=== PATIENT | female | born 1955 | race Caucasian/White ===

== ENCOUNTER 2018-10-02 06:34 | Inpatient (IN) | payer SELFPAY ==
[2018-10-02] MEDS ORDERED: METHYLPREDNISOLONE 125 MG INJ ONE (06:55)
[2018-10-02] MEDS ORDERED: LEVALBUTEROL 1.25 MG/3 ML NEB ONE (06:56)
[2018-10-02] MEDS ORDERED: MAGNESIUM SULFATE 1 gm IVPB 1 GM/100 ML BAG IV ONE (06:56)
[2018-10-02 07:19] LABS: Arterial Blood Carboxyhemoglob 0.7 % (0-1.5); Blood Gas Oxyhemoglobin 77.5 % (94-97); Blood O2 Saturation 78.6 % (92-98.5)
[2018-10-02] MEDS ORDERED: IPRATROPIUM BROM 0.5MG/2.5ML ONE (07:29)
[2018-10-02] MEDS ORDERED: ALBUTEROL 2.5 MG/3 ML NEB SOL ONE (07:29)
[2018-10-02 08:08] LABS: Troponin (Emerg Dept Use Only) 0.07 ng/mL (0.0-0.045)
--- NOTE | 2018-10-02 08:11 | RAD REPORT ---
EXAM DESCRIPTION: Jennifer Single View10/02/2018 7:09 am CLINICAL HISTORY: Shortness of breath COMPARISON: 2009 FINDINGS: The lungs are hyperaerated. The lungs appear clear of acute infiltrate. The heart is normal size
[2018-10-02 08:24] LABS: Absolute Lymphocytes (CBC) 1.4 K/uL (0.7-4.9); Absolute Monocytes 0.3 K/uL (0.1-1.3); Absolute Neutrophil 6.5 K/uL (1.8-8.0); Basophils % 0.5 % (0-1.3); Eosinophils % 3.2 % (0-4.4); Hematocrit 42.8 % (36.0-45.0); Lymphocytes % 16.2 % (15.3-44.8); MPV 8.9 fL (7.6-11.3); Monocytes % 3.6 % (3.3-12.3); RBC Red Blood Cell Count 4.44 M/uL (3.86-4.86)
[2018-10-02] MEDS ORDERED: LORazepam 2 MG/ML VIAL ONE (08:42)
--- NOTE | 2018-10-02 08:51 | ER ---
Nurse's Notes [facility] Name: Alyson Phillips Age: 63 yrs Sex: Female : 1955 Arrival Date: 10/02/2018 Time: 06:37 Bed 4 Private MD: Diagnosis: Chronic obstructive pulmonary disease with (acute) exacerbation;Elevated Troponin Presentation: 10/02 06:40 Presenting complaint: pt's daughter states pt is having difficulty breathing which has bb worsened over the last few hours. Transition of care: patient was not received from another setting of care. Onset of symptoms was October 02, 2018. Risk Assessment: Do you want to hurt yourself or someone else? Patient reports no desire to harm self or others. Initial Sepsis Screen: Does the patient meet any 2 criteria? RR > 20 per min. HR > 90 bpm. Yes Does the patient have a suspected source of infection? Yes: Productive cough/pneumonia If YES to both, name of provider notified: Vitaly Luz MD. Care prior to arrival: None. 06:40 Method Of Arrival: Ambulatory bb 06:40 Acuity: GREGORIO 1 bb Triage Assessment: 06:50 General: Appears distressed, Behavior is anxious, restless. Respiratory: Reports lp1 shortness of breath Airway is patent Respiratory effort is labored, Respiratory pattern is tachypnea Breath sounds with wheezes bilaterally. Onset: The symptoms/episode began/occurred just prior to arrival, the patient has severe shortness of breath. Historical: - Allergies: 06:52 poison oak; bb - Home Meds: 06:52 albuterol inhaler [Active]; bb - PMHx: 06:52 None; bb - PSHx: 06:52 Hysterectomy; throat polyps; bb - Immunization history:: Adult Immunizations up to date, Pneumococcal vaccine is not up to date, Flu vaccine is not up to date. - Social history:: Smoking status: Patient/guardian denies using tobacco, the patient reports quitting approximately 20 years ago. - Family history:: not pertinent. - Ebola Screening: : No symptoms or risks identified at this time. - Hospitalizations: : No recent hospitalization is reported. Screenin:00 Abuse screen: Denies threats or abuse. Denies injuries from another. Nutritional lp1 screening: No deficits noted. Tuberculosis screening: No symptoms or risk factors identified. Fall Risk Total Mg Fall Scale indicates High Risk Score (45 or more points). Fall prevention measures have been instituted. Side Rails Up X 2. Assessment: 07:10 General: Appears uncomfortable, Behavior is cooperative. Pain: Denies pain. Neuro: aa5 Level of Consciousness is awake, alert, obeys commands, Oriented to person, place, time, situation. Cardiovascular: Denies chest pain, Heart tones S1 S2 present Rhythm is regular. Respiratory: Reports shortness of breath Airway is patent Respiratory effort is labored, Respiratory pattern is symmetrical, Breath sounds with wheezes bilaterally. GI: Abdomen is round Bowel sounds present X 4 quads. Abd is soft and non tender X 4 quads. : No signs and/or symptoms were reported regarding the genitourinary system. EENT: No signs and/or symptoms were reported regarding the EENT system. Derm: Skin is pink, warm \T\ dry. Musculoskeletal: Range of motion: intact in all extremities. 07:10 Reassessment: Pt tolerating Bi-PAP well. Pt only able to speak words and short aa5 sentences at this time due to SOB. . 07:47 Reassessment: technical applications scientist at bedside attempting to collect 2nd set of blood cultures. . aa5 07:47 Reassessment: Pt remains sitting up in high-dietz's position. Pt tolerating Bi-PAP aa5 well. Respirations are labored and symmetrical. Bed remains in low position, side rails x 2, call slaughter within reach. . 08:27 Reassessment: Pt appears distressed, tachypnea noted, respirations are labored with aa5 accessory muscle use. O2 sat remains 100%. Dr. Dorsey was notified and Dr. Dorsey at bedside at this time. . 08:36 Reassessment: Patient denies pain at this time. Pt states feeling better, SOB has aa5 improved, no use of accessory muscle noted at this time. Pt remains in high-dietz's position. . 09:00 Reassessment: Pt sitting up in bed. Appears comfortable. Pt states marked relief of aa5 symptoms, reports SOB has improved. Respirations even and unlabored, tolerating Bi-PAP well. Skin pink/warm/dry. Denies pain. Sinus Rhythm on monitor. Bed remains in low positions, side rails x 2, call slaughter within reach. . 09:45 Reassessment: Patient is alert, oriented x 3, equal unlabored respirations, skin aa5 warm/dry/pink. Vital Signs: 06:52 BP 171 / 107; Pulse 115; Resp 22 S; Pulse Ox 97% on R/A; Weight 68.04 kg (R); Height 5 bb ft. 0 in. (152.40 cm) (R); Pain 0/10; 07:10 Pulse 100; Resp 22 S; Temp 97.4(A); Pulse Ox 100% on BiPAP; aa5 07:39 BP 131 / 86; Pulse 104; Resp 20 S; Temp 97.9(TE); Pulse Ox 100% on BiPAP; Pain 0/10; aa5 08:05 BP 126 / 81; Pulse 99; Resp 20 S; Pulse Ox 100% on BiPAP; Pain 0/10; aa5 09:00 BP 129 / 90; Pulse 96; Resp 18 S; Temp 97.8(TE); Pulse Ox 100% on BiPAP; Pain 0/10; aa5 09:45 BP 122 / 82; Pulse 95; Resp 18 S; Pulse Ox 100% on BiPAP; Pain 0/10; aa5 06:52 Body Mass Index 29.29 (68.04 kg, 152.40 cm) bb ED Course: 06:37 Patient arrived in ED. am2 06:38 Vitaly Luz MD is Attending Physician. rn 06:40 Inserted saline lock: 20 gauge in right antecubital area, using aseptic technique. ea 06:46 Radiology exam delayed due to IV insertion attempt and/or patient not having kw appropriate IV at this time. 06:48 Missed attempt(s): 20 gauge in left antecubital area. Bleeding controlled, band aid ea applied, catheter tip intact. 06:50 Triage completed. bb 06:50 Inserted saline lock: 22 gauge in right forearm, using aseptic technique. lp1 06:52 Arm band placed on Patient placed in an exam room, on a stretcher, on oxygen, on bb cardiac cath lab manager, on pulse oximetry. Family accompanied patient. 07:00 Patient has correct armband on for positive identification. Placed in gown. Bed in low lp1 position. monitoring engineer on. Pulse ox on. NIBP on. 07:00 Report received from Jany Contreras RN. aa5 07:02 Jania Bruno, RN is Primary Nurse. aa5 07:08 X-ray completed. Portable x-ray completed in exam room. Patient tolerated procedure ls3 well. 07:10 XRAY CXR (1 view) In Process Unspecified. EDMS 07:17 Attending Physician role handed off by Vitaly Luz MD ps1 07:17 Ebenezer Dorsey MD is Attending Physician. ps1 07:25 First set of blood cultures drawn. aa5 07:30 Initial lab(s) drawn, by me, sent to lab. aa5 07:30 Inserted saline lock: 22 gauge in right forearm, using aseptic technique. aa5 08:50 Ashely Nava MD is Hospitalizing Provider. ps1 09:45 No provider procedures requiring assistance completed. Patient admitted, IV remains in aa5 place. Administered Medications: 06:45 Drug: Xopenex (3) 1.25 mg Route: Inhalation; ea 06:51 Drug: SOLU-Medrol 125 mg {Note: medication given IM to left deltoid.} Route: IVP; Site: ea Other; 07:10 Follow up: Response: No adverse reaction aa5 06:52 Drug: Magnesium Sulfate 1 grams Route: IVPB; Infused Over: 1 hrs; Site: right forearm; ea 07:52 Follow up: Response: No adverse reaction; IV Status: Completed infusion aa5 07:13 Drug: Albuterol - atroVENT (3:1) (2.5 mg - 0.5 mg) 3 ml Route: Nebulizer; aa5 07:30 Follow up: Response: No adverse reaction aa5 08:29 Drug: Ativan 1 mg Route: IVP; Site: left forearm; aa5 08:36 Follow up: Response: No adverse reaction; Marked relief of symptoms aa5 Ventilator: 08:05 Fi02: 50%; aa5 08:05 Bi-PAP settings: O2 50%, Rate 16, IPAP 16, EPAP 8 aa5 Outcome: 08:50 Decision to Hospitalize by Provider. ps1 09:45 Admitted to ICU accompanied by nurse, accompanied by tech, via stretcher, with oxygen, aa5 on monitor, with chart, Report called to KAYLEE Fitzpatrick 09:45 Condition: stable 09:45 Instructed on the need for admit, Demonstrated understanding of instructions. 09:50 Patient left the ED. aa5 Signatures: Dispatcher [employer] EDHui Barnes, KAYLEE RN Vitaly Adams MD MD rn Calderon, Audri, RN RN aa5 Farheen Tsang Laura, RN RN lp1 Lucinda Stephens am2 Ileana Charles RN RN ea Singer, Phillip, MD MD ps1 Siler, Lynzie ls3 Corrections: (The following items were deleted from the chart) 10:01 09:59 Patient left the ED. alexsandra aa5
--- NOTE | 2018-10-02 08:51 | EDPHYS ---
Physician Documentation [facility] Name: Alyson Phillips Age: 63 yrs Sex: Female : 1955 Arrival Date: 10/02/2018 Time: 06:37 Bed 4 Private MD: ED Physician Ebenezer Dorsey HPI: 10/02 06:39 This 63 yrs old Female presents to ER via Unassigned with complaints of rn Breathing Difficulty. 06:39 The patient has shortness of breath at rest. Onset: The symptoms/episode began/occurred rn 3 hour(s) ago. Duration: The symptoms are continuous. The patient's shortness of breath is aggravated by coughing, light activity. 06:40 Associated signs and symptoms: Pertinent positives: chest pain, non-productive cough, rn Pertinent negatives: diaphoresis, fever, hemoptysis, loss of consciousness. Severity of symptoms: At their worst the symptoms were severe in the emergency department the symptoms are unchanged. The patient has experienced similar episodes in the past. REports previous smoker, woke up with sob 3 hours ago, no fever, + cough, about 30 min ago began with left sided chest pain, reports sob is worse than chest pain. No hemoptysis. No abd pain. Uses inhaler, but states doesn't see a doctor and doesn't have any "official" medical diagnosis. . Historical: - Allergies: 06:52 poison oak; bb - Home Meds: 06:52 albuterol inhaler [Active]; bb - PMHx: 06:52 None; bb - PSHx: 06:52 Hysterectomy; throat polyps; bb - Immunization history:: Adult Immunizations up to date, Pneumococcal vaccine is not up to date, Flu vaccine is not up to date. - Social history:: Smoking status: Patient/guardian denies using tobacco, the patient reports quitting approximately 20 years ago. - Family history:: not pertinent. - Ebola Screening: : No symptoms or risks identified at this time. - Hospitalizations: : No recent hospitalization is reported. ROS: 06:40 Constitutional: Negative for fever, chills, and weight loss, Eyes: Negative for injury, rn pain, redness, and discharge, Neck: Negative for injury, pain, and swelling, Cardiovascular: + chest pain Respiratory: + for sob/cough/wheezing Abdomen/GI: Negative for abdominal pain, nausea, vomiting, diarrhea, and constipation, Back: Negative for injury and pain, MS/Extremity: Negative for injury and deformity, Skin: Negative for injury, rash, and discoloration, Neuro: Negative for headache, weakness, numbness, tingling, and seizure. Exam: 06:40 Constitutional: This is a well developed, well nourished patient who is awake, alert, rn tripod position and wheeled to room gasping Head/Face: Normocephalic, atraumatic. Eyes: Pupils equal round and reactive to light, extra-ocular motions intact. Lids and lashes normal. Conjunctiva and sclera are non-icteric and not injected. Cornea within normal limits. Periorbital areas with no swelling, redness, or edema. ENT: dry MM, no oral swelling, no stridor, speaking 2 word sentences Cardiovascular: Tachycardic, regular, no murmur Respiratory: + moderate tachypnea with retractions and tripod position, + diffuse exp wheezing bilaterally Abdomen/GI: soft, non-tender Skin: Warm, dry MS/ Extremity: Pulses equal, no cyanosis. Neurovascular intact. Full, normal range of motion. Equal circumference. Neuro: Awake and alert, GCS 15, oriented to person, place, time, and situation. Cranial nerves II-XII grossly intact. Motor strength 5/5 in all extremities. Sensory grossly intact. Vital Signs: 06:52 BP 171 / 107; Pulse 115; Resp 22 S; Pulse Ox 97% on R/A; Weight 68.04 kg (R); Height 5 bb ft. 0 in. (152.40 cm) (R); Pain 0/10; 07:10 Pulse 100; Resp 22 S; Temp 97.4(A); Pulse Ox 100% on BiPAP; aa5 07:39 BP 131 / 86; Pulse 104; Resp 20 S; Temp 97.9(TE); Pulse Ox 100% on BiPAP; Pain 0/10; aa5 08:05 BP 126 / 81; Pulse 99; Resp 20 S; Pulse Ox 100% on BiPAP; Pain 0/10; aa5 09:00 BP 129 / 90; Pulse 96; Resp 18 S; Temp 97.8(TE); Pulse Ox 100% on BiPAP; Pain 0/10; aa5 09:45 BP 122 / 82; Pulse 95; Resp 18 S; Pulse Ox 100% on BiPAP; Pain 0/10; aa5 06:52 Body Mass Index 29.29 (68.04 kg, 152.40 cm) bb Ventilator: 08:05 Fi02: 50%; aa5 08:05 Bi-PAP settings: O2 50%, Rate 16, IPAP 16, EPAP 8 aa5 MDM: 06:38 Patient medically screened. rn 07:01 ED course: Assumed care from at shift change. Dyspnea no previous dx. Appears ps1 COPD. Good sats. On breathing tx. Plan for admission. Pending labs and imaging. 10/02 06:39 Order name: Blood Culture Adult (2) rn 10/02 06:39 Order name: BMP; Complete Time: 08:14 rn 10/02 06:39 Order name: CBC with Diff; Complete Time: 08:48 rn 10/02 06:39 Order name: NT PRO-BNP; Complete Time: 08:14 rn 10/02 06:39 Order name: Troponin (emerg Dept Use Only); Complete Time: 08:14 rn 10/02 07:16 Order name: ABG Arterial Blood Gas; Complete Time: 07:26 EDMS 10/02 06:39 Order name: BIPAP rn 10/02 06:39 Order name: XRAY CXR (1 view); Complete Time: 08:14 rn 10/02 06:39 Order name: EKG; Complete Time: 06:42 rn 10/02 06:39 Order name: Cardiac monitoring; Complete Time: 07:03 rn 10/02 06:39 Order name: EKG - Nurse/Tech; Complete Time: 07:03 rn 10/02 06:39 Order name: IV Saline Lock; Complete Time: 07:03 rn 10/02 06:39 Order name: Labs collected and sent; Complete Time: 07:44 rn 10/02 06:39 Order name: O2 Per Protocol; Complete Time: 07:03 rn 10/02 06:39 Order name: O2 Sat Monitoring; Complete Time: 07:03 rn 10/02 08:13 Order name: Labs - recollect needed; Complete Time: 08:19 bd Administered Medications: 06:45 Drug: Xopenex (3) 1.25 mg Route: Inhalation; ea 06:51 Drug: SOLU-Medrol 125 mg {Note: medication given IM to left deltoid.} Route: IVP; Site: ea Other; 07:10 Follow up: Response: No adverse reaction aa5 06:52 Drug: Magnesium Sulfate 1 grams Route: IVPB; Infused Over: 1 hrs; Site: right forearm; ea 07:52 Follow up: Response: No adverse reaction; IV Status: Completed infusion aa5 07:13 Drug: Albuterol - atroVENT (3:1) (2.5 mg - 0.5 mg) 3 ml Route: Nebulizer; aa5 07:30 Follow up: Response: No adverse reaction aa5 08:29 Drug: Ativan 1 mg Route: IVP; Site: left forearm; aa5 08:36 Follow up: Response: No adverse reaction; Marked relief of symptoms aa5 Disposition: 10/02/18 08:50 Hospitalization ordered by Ashely Nava for Inpatient Admission. Preliminary diagnosis are Chronic obstructive pulmonary disease with (acute) exacerbation, Elevated Troponin. - Bed requested for Intensive Care Unit. - Status is Inpatient Admission. aa5 - Condition is Fair. - Problem is new. - Symptoms have improved. UTI on Admission? No Signatures: Dispatcher [employer] EDMS Felicia Mae Brenda, RN RN bb Vitaly Luz MD MD rn Calderon, Audri, RN RN aa5 Antunez, Elena, RN RN ea Singer, Phillip, MD MD ps1 Corrections: (The following items were deleted from the chart) 06:43 06:40 Constitutional: Negative for fever, chills, and weight loss, Eyes: Negative for rn injury, pain, redness, and discharge, Neck: Negative for injury, pain, and swelling, Cardiovascular: + chest pain Respiratory: + for sob/cough/wheezing Abdomen/GI: Negative for abdominal pain, nausea, vomiting, diarrhea, and constipation, MS/Extremity: Negative for injury and deformity, Skin: Negative for injury, rash, and discoloration, Neuro: Negative for headache, weakness, numbness, tingling, and seizure, rn 09:30 08:50 Hospitalization Ordered by Ashely Nava MD for Inpatient Admission. Preliminary bd diagnosis is Chronic obstructive pulmonary disease with (acute) exacerbation; Elevated Troponin. Bed requested for Telemetry/MedSurg (Inpatient). Status is Inpatient Admission. Condition is Fair. Problem is new. Symptoms have improved. UTI on Admission? No. ps1 09:59 09:30 10/02/2018 08:50 Hospitalization Ordered by Ashely Nava MD for Inpatient aa5 Admission. Preliminary diagnosis is Chronic obstructive pulmonary disease with (acute) exacerbation; Elevated Troponin. Bed requested for Intensive Care Unit. Status is Inpatient Admission. Condition is Fair. Problem is new. Symptoms have improved. UTI on Admission? No. bd
[2018-10-02] MEDS ORDERED: ONDANSETRON 4 MG/2 ML VIAL IV PRN (09:57)
[2018-10-02] MEDS ORDERED: ACETAMINOPHEN 500 MG TAB PO PRN (09:57)
[2018-10-02] MEDS ORDERED: NA CHLORIDE 0.9% 1,000 ML IV SCH (10:00)
[2018-10-02] MEDS ORDERED: KETOROLAC 30 MG/ML INJ IV ONE (10:36)
[2018-10-02] MEDS ORDERED: IPRATROPIUM BROM 0.5MG/2.5ML NEB SCH (12:00)
[2018-10-02] MEDS ORDERED: ALBUTEROL 2.5 MG/3 ML NEB SOL NEB SCH (12:00)
[2018-10-02] MEDS ORDERED: PNEUMOCOCCAL VACCINE 0.5 ML IMVAC ONE (12:00)
--- NOTE | 2018-10-02 13:07 | P.CNS ---
Date of Consult: 10/02/18 Reason for Consult: COPD exacerbation Chief Complaint: Shortness of breath History of Present Illness: Patient is 63 years of age admitted with acute on chronic shortness of breath she quit smoking 9 years ago as been having progressive dyspnea patient is not under the care of any physician does not use any bronchodilators presume COPD also complains of some neck discomfort which is again chronic patient is very BP appears to be very depressed does not follow up with any physicians due to medical insurance Allergies No Known Allergies Allergy (Unverified 10/02/18 09:47) Home Medications: Albuterol Inhaler [Ventolin Inhaler] 2 puff IH Q6H PRN 10/02/18 - Past Medical/Surgical History Diabetic: No -: Does not see pharmacist hospital, Albuterol inhaler is her brother's Rx - Family History Father Medical History: Lung disease, Cancer Mother Medical History: Heart disease Brother Medical History: Heart disease, Diabetes Sister Medical History: Heart disease, Stroke, Cancer - Social History Alcohol use: Yes CD- Drugs: No Caffeine use: No Place of Residence: Home Review of Systems 10-point ROS is otherwise unremarkable General: Weakness Respiratory: Shortness of Breath Physical Examination Temp Pulse Resp BP Pulse Ox 97.9 F 90 17 121/63 100 10/02/18 09:59 10/02/18 11:00 10/02/18 11:00 10/02/18 11:00 10/02/18 11:00 General: Alert, Oriented x3 HEENT: Atraumatic Neck: Supple Respiratory: Clear to auscultation bilaterally, Diminished Cardiovascular: No edema, Normal pulses, Regular rate/rhythm Laboratory Data (last 24 hrs) 10/02/18 07:57: WBC 8.5, Hgb 14.3, Hct 42.8, Plt Count 182 10/02/18 07:25: Sodium 140, Potassium 5.0, BUN 9, Creatinine 0.79, Glucose 116 H - Problems (1) COPD exacerbation Current Visit: Yes Status: Acute Plan: Patient is 63 years of age a former smoker admitted with worsening dyspnea hypoxemia hypercapnia most likely she has underlying COPD exacerbation currently doing better on nasal cannula oxygen her vital signs are all stable labs reviewed a chest x-rays clear check room air pulse ox to she if she qualifies for home oxygen possible discharge tomorrow on prednisone 10 b.i.d. 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
[2018-10-02] MEDS ORDERED: ALBUTEROL 2.5 MG/3 ML NEB SOL NEB PRN (14:00)
[2018-10-02] MEDS: IPRATROPIUM BROM 0.5MG/2.5ML NEB SCH ×2 (14:00→20:00)
--- NOTE | 2018-10-02 14:06 | EKG ---
Test Date: 2018-10-02 Test Time: 06:56:25 Second Language Tutor: EDVIN MEASUREMENT RESULTS: Intervals: Rate: 111 HI: 138 QRSD: 68 QT: 332 QTc: 451 [place]: P: 75 HI: 138 QRS: 64 T: 71 INTERPRETIVE STATEMENTS: Sinus tachycardia cannot rule out septal infarct, age undetermined Abnormal ECG Compared to ECG 05/31/2009 10:16:40 Possible myocardial infarct finding now present Sinus rhythm no longer present Electronically Signed On 10-02-18 14:05:34 CDT by Asaf Pollard
[2018-10-02] MEDS ORDERED: ENOXAPARIN 40 MG/0.4 ML SQ SCH (17:00)
[2018-10-02] MEDS: METHYLPREDNISOLONE 40 MG INJ IV SCH (17:53)
[2018-10-02] MEDS: ARFORMOTEROL TARTRATE 15 MCG/2 ML VIAL.NEB NEB SCH (20:00)
--- NOTE | 2018-10-02 21:33 | HP ---
Date of Admission: 10/02/2018 Primary Care Physician: None. Consultants: Dr. Kuhn with Pulmonology. Chief Complaint: Shortness of breath. History Of Present Illness: The patient is a 63-year-old female with no significant past medical his tory, has not been to a physician in many years, who uses her brother's rescue inhaler at times, heav y smoker in the past, comes in with acute shortness of breath. Also reports nonproductive cough. De nies any fevers, chills, nausea, vomiting. No ill-contacts. The patient states that she has been sh ort of breath for the past several weeks, however, today was unable to catch her breath, was more sig nificantly short of breath than usual. She also reported some chest discomfort. The patient's sympt oms were constant, moderate, progressively worsening. Worse with activity. Therefore, came into the ER for further evaluation. Upon arrival, her vital signs showed a heart rate of 115. She was satur ating 97%. Blood pressure was 171/107. She was tachypneic. The patient was placed on BiPAP. Her A BG seems to be a venous sample, showed a pH of 7.33, pCO2 of 48, PO2 of 59. Her WBC count was normal . Troponin was elevated at 0.07. Her chest x-ray was clear. The patient was then referred for admi ssion. When seen in the ER, she was tachypneic, in respiratory distress, very anxious and struggling to breathe, on BiPAP. Past Medical History: No official diagnosis, however, most likely has COPD. Has been using a rescue inhaler. Surgical History: Hysterectomy, throat polyps. Allergies: POISON OAK. Medications: Albuterol inhaler as needed. Social History: The patient smoked, has a 40 pack year history, quit in 2008. Drinks 4 glasses of w ine 2-3 days a week. Lives at home by herself. Family History: Father had heart disease and diabetes. Review of Systems: Ten-point system reviewed, negative except as per HPI. Physical Examination: Vital Signs: Temperature 97.4, heart rate 115, blood pressure 171/107, respirations 22, O2 97% on Bi PAP. General: Awake, alert, oriented x3, appears older than stated age, in moderate respiratory distress female. HEENT: Normocephalic, atraumatic. PERRLA. EOMI. Moist mucous membranes. Oropharynx is clear. Po or dentition. Conjunctivae anicteric. Neck: Supple. No JVD. Trachea midline. CV: S1, S2. Sinus tachycardia. Peripheral pulses present. No murmurs. Respiratory: Diminished breath sounds. Diffuse expiratory wheezing. The patient is tachypneic with use of accessory muscles. No stridor. Gastrointestinal: Abdomen is soft, nontender, nondistended. Positive bowel sounds. No guarding or rigidity. Extremities: No clubbing, cyanosis, or edema. No calf tenderness. Neuro: Cranial nerves 2-12 intact grossly. No focal neurological deficit. Speech is normal. Skin: No rashes. Normal skin turgor. Psych: Mood is anxious. Affect is congruent with mood. Insight and judgment are fair. Laboratory Data: Sodium 140, potassium 5, chloride 110, CO2 22, BUN 9, creatinine 0.79, glucose 116, calcium 9.1, troponin 0.07. BNP 77. WBC 8.5, H and H 14.3 and 42.8, platelets 182, neutrophils 76% . ABG; pH 7.33, pCO2 48.5, PO2 59.4, bicarb 24.9. Chest x-ray, lungs appear clear of acute infiltra te, heart normal in size, personally reviewed. Assessment: A 63-year-old female with: 1.Acute respiratory failure with hypoxia and hypercapnia secondary to chronic obstructive pulmonary disease. Continue BiPAP. We will consult Pulmonology. 2.Acute chronic obstructive pulmonary disease exacerbation. We will start on nebulizer treatments, IV steroids. Continue supplemental oxygen, support with BiPAP. The patient will need maintenance in halers as well going forward. 3.Elevated troponin level of unclear etiology, may be due to hypoxia. The patient did complain of s ome chest discomfort. We will obtain EKG. Doubt voy-OH-vxadbtw elevation myocardial infarction. We will place on cardiac telemetry. 4.Alcohol abuse. We will start on thiamine and folate. We will watch for signs of withdrawal. Plan: Admit the patient to ICU, place as inpatient. Length of stay greater than 2 midnights. DVT p rophylaxis with Lovenox. SA/MODL Voice ID: [id number]
[2018-10-02] MEDS ORDERED: MORPHINE 2 MG/ML SYR IV ONE (22:00)
[2018-10-03] MEDS: METHYLPREDNISOLONE 40 MG INJ IV SCH ×2 (01:54→09:44)
[2018-10-03] MEDS: IPRATROPIUM BROM 0.5MG/2.5ML NEB SCH ×2 (02:00→07:40)
[2018-10-03 05:06] LABS: Absolute Lymphocytes (CBC) 1.1 K/uL (0.7-4.9); Absolute Monocytes 0.2 K/uL (0.1-1.3); Absolute Neutrophil 11.2 K/uL (1.8-8.0); Basophils % 0.2 % (0-1.3); Hematocrit 40.7 % (36.0-45.0); Lymphocytes % 8.6 % (15.3-44.8); Monocytes % 1.7 % (3.3-12.3); RBC Red Blood Cell Count 4.29 M/uL (3.86-4.86)
[2018-10-03 05:27] LABS: BUN Blood Urea Nitrogen 13 mg/dL (7-18); Bicarbonate 29 mmol/L (21-32); Glucose Level 149 mg/dL (74-106); Potassium 4.5 mmol/L (3.5-5.1); Sodium Level 140 mmol/L (136-145)
[2018-10-03 05:54] LABS: Urine White Blood Cell Casts DIFF
[2018-10-03 05:55] LABS: Blood Morphology Comment NOT SEEN (NOT SEEN); Platelet Estimate ADEQ; Platelets, Giant PRESENT
[2018-10-03] MEDS: ARFORMOTEROL TARTRATE 15 MCG/2 ML VIAL.NEB NEB SCH (07:40)
[2018-10-03 08:39] VITALS: BP 122/67; TEMP 97.1
[2018-10-03 09:37] VITALS: O2SAT 99
[2018-10-03 10:25] VITALS: BMI 23.2
--- NOTE | 2018-10-04 06:11 | DS ---
Date of Discharge: 10/03/2018 Consultants: Dr. Kuhn with Pulmonology. Admitting Diagnoses: 1.Acute respiratory failure with hypercapnia and hypoxia. 2.Acute COPD exacerbation. 3.Elevated troponin level. 4.Alcohol abuse. Discharge Diagnoses: 1.Acute respiratory failure with hypoxia and hypercapnia, resolved. 2.Acute COPD exacerbation, improving. 3.Elevated troponin level. No chest pain. 4.Alcohol abuse, counseled. Hospital Course: The patient is a 63-year-old female, who does not follow up with any physician, who has COPD unofficially, never been diagnosed, who uses her brother's rescue inhaler at times. The batool rogers was a heavy smoker in the past, quit about 9 years ago. The patient comes in with acute shortn ess of breath, found to be hypoxic, hypercapnic, required BiPAP, had elevated blood pressure. The batool rogers was started on nebulizer treatments and IV steroids. She was initially admitted to ICU, [facility], with quicker than usual response. The patient was able to be weaned off BiPAP, was saturating wel l and was switched to Venturi mask. The patient was step-down from ICU, was stable on the floor. Meche rowland was seen by Dr. Kuhn with Pulmonology. She was counseled regarding her COPD. The patient will need outpatient PFTs. She was able to be weaned off oxygen completely. Her O2 saturations were 93% on room air. She was able to ambulate without significant shortness of breath. Her wheezing improv ed. She had minimal cough. Her chest x-ray was clear. There is no sign of pneumonia or pulmonary i nfection. The patient also had adjustment disorder with depressed mood, has been stressed mainly at home and wi ll be started on antidepressants. The patient stated that she does not have a job or money and does not have health insurance. She will be eligible for Medicaid next year. Sports Analyst also spoke with the patient to provide resources including indigent care clinics like [facility]. The batool rogers was also recommended to go to Dr. Kuhn's office to sisal picker samples of her inhalers. The batool rogers was then cleared for discharge. She was stable from a pulmonology standpoint. She did not hav e any further respiratory distress. She was off oxygen. She was ambulating well without getting dys pneic. Discharge Condition: Stable. Activity: No strenuous activity for the next few days. Diet: Regular diet. Followup: Follow up with Dr. Kuhn, pulmonology, in 2 weeks. Go to his office immediately after discharge to sisal picker inhaler samples. Return to ER for worsening condition. Establish care with PCP in the next 2-3 days or latest in a week. Physical Examination: General: Awake, alert, oriented x3. Appears older than stated age. CV: S1, S2. Respiratory: Moving air well bilaterally. Minimal wheezing. Gastrointestinal: Abdomen is soft, nontender, nondistended. Positive bowel sounds. Extremities: No clubbing, cyanosis, or edema. Neuro: Nonfocal. Total time spent discharging the patient was 33 minutes. ARRON Voice ID: [id number] Report ID: [id number]
== END 2018-10-03 12:14 | disposition home or self-care (01) | DRG 190 ==
LOC: ER 06:34 → ERHOLD 09:13 → 3RD-ICU 09:39 → 2ND 11:20
PROVIDERS: ADMIT Family Medicine; ATTEND Family Medicine
DX: J44.1 Chronic obstructive pulmonary disease with (acute) exacerbation (principal); J96.02 Acute respiratory failure with hypercapnia; J96.01 Acute respiratory failure with hypoxia; F10.10 Alcohol abuse, uncomplicated; F43.21 Adjustment disorder with depressed mood; Z23 Encounter for immunization; Z79.51 Long term (current) use of inhaled steroids; Z87.891 Personal history of nicotine dependence
CPT/HCPCS: 36415; 71045; 80048; 82805; 83880; 84443; 84484; 85025; 87040; 87205; 90471; 90670; 93005; 94640; 94660; 99291; 99292; J1650; J2270; J2920; J2930; J3475; J7030; J7605

== ENCOUNTER 2019-02-27 08:21 | Emergency (ER) | payer SELFPAY ==
--- NOTE | 2019-02-27 09:17 | RAD REPORT ---
EXAM DESCRIPTION: CT - CTHCSPWOC - 02/27/2019 9:05 am CLINICAL HISTORY: Trauma, head and neck injury. s/p fall;Pain COMPARISON: No comparisons TECHNIQUE: Axial 5 mm thick images of the head were obtained. Axial 2 mm thick images of the cervical spine were obtained with sagittal and coronal reconstruction images generated and reviewed. All CT scans are performed using dose optimization technique as appropriate and may include automated exposure control or mA/KV adjustment according to patient size. FINDINGS: CT HEAD WITHOUT CONTRAST: Left frontal convexity acute subdural hematoma is present measuring 7 mm in thickness.Small amount of subdural blood is seen layering along the tentorium as well.No midline shift. No hydrocephalus. The paranasal sinuses and mastoids are clear.The calvarium is intact. Small right posterior scalp hem atoma. CT CERVICAL SPINE WITHOUT CONTRAST: No fracture or subluxation.Mild mid and lower cervical degenerative change.No prevertebral soft tissu es swelling is identified. IMPRESSION: Small acute left frontal subdural hematoma (7 mm thick) is present without significant m idline shift. The findings were discussed with Dr. Miller On 02/27/2019 at 9:12 a.m. by telephone.
--- NOTE | 2019-02-27 09:30 | EDPHYS ---
Physician Documentation [facility] Name: Alyson Phillips Age: 63 yrs Sex: Female : 1955 Arrival Date: 02/27/2019 Time: 08:24 Bed 6 Private MD: Darren Vallejo E ED Physician Tim Miller HPI: 02/27 08:52 This 63 yrs old Female presents to ER via Wheelchair with complaints of Fall kdr Injury. 08:52 Details of fall: The patient fell from an upright position, while standing, while kdr walking. Onset: The symptoms/episode began/occurred gradually, 1 month(s) ago. Associated injuries: The patient sustained injury to the head, injury to the low back. Severity of symptoms: At their worst the symptoms were mild, moderate, just prior to arrival, in the emergency department the symptoms are unchanged. The patient has experienced similar episodes in the past, a few times. The patient has not recently seen a physician. Friends are concerned that the patient may be taking more pain medication than needed or that the pain medication in general is causing her to be unstable. She reports that when she gets up at night, she is running into the [place] and falling. She denies LOC but said that from time to time she sees "stars" after falling and hitting her head. Historical: - Allergies: 08:25 NKDA; aa5 09:56 poison oak; bp - Home Meds: 09:56 albuterol inhaler [Active]; bp - PSHx: 08:25 Hysterectomy; throat polyps; aa5 - Immunization history:: Pneumococcal vaccine is up to date, Flu vaccine is not up to date. - Social history:: Smoking status: Patient/guardian denies using tobacco. - Immunization history: Last tetanus immunization: unknown. - Ebola Screening: : No symptoms or risks identified at this time. ROS: 08:52 Constitutional: Negative for fever, chills - she has had \\R\\ 10 lb weight loss Eyes: kdr Negative for injury, pain, redness, and discharge, ENT: Negative for injury, pain, and discharge, Neck: Negative for injury, pain, and swelling, Cardiovascular: Negative for chest pain, palpitations, and edema, Respiratory: Negative for shortness of breath, cough, wheezing, and pleuritic chest pain, Abdomen/GI: Negative for abdominal pain, nausea, vomiting, diarrhea, and constipation, : Negative for injury, bleeding, discharge, and swelling, MS/Extremity: Negative for injury and deformity, Skin: Negative for injury, rash, and discoloration, Psych: Negative for depression, anxiety, suicide ideation, homicidal ideation, and hallucinations, Allergy/Immunology: Negative for hives, rash, and allergies, Endocrine: Negative for neck swelling, polydipsia, polyuria, polyphagia, and marked weight changes, Hematologic/Lymphatic: Negative for swollen nodes, abnormal bleeding, and unusual bruising. 08:52 Back: Positive for injury or acute deformity, pain at rest, pain with movement, of the low back area. 08:52 Neuro: Positive for dizziness, gait disturbance, headache, near syncope, weakness. Exam: 08:52 Constitutional: This is a well developed, well nourished patient who is awake, alert, kdr and in no acute distress. Head/Face: Normocephalic, atraumatic. Eyes: Pupils equal round (left slightly larger than right) and reactive to light, extra-ocular motions intact. Lids and lashes normal. Conjunctiva and sclera are non-icteric and not injected. Cornea within normal limits. Periorbital areas with no swelling, redness, or edema. Neck: Trachea midline, no thyromegaly or masses palpated, and no cervical lymphadenopathy. Supple, full range of motion without nuchal rigidity, or vertebral point tenderness. No Meningismus. Chest/axilla: Normal chest wall appearance and motion. Nontender with no deformity. No lesions are appreciated. Cardiovascular: Regular rate and rhythm with a normal S1 and S2. No gallops, murmurs, or rubs. Normal PMI, no JVD. No pulse deficits. Respiratory: Lungs have equal breath sounds bilaterally, clear to auscultation and percussion. No rales, rhonchi or wheezes noted. No increased work of breathing, no retractions or nasal flaring. Abdomen/GI: Soft, non-tender, with normal bowel sounds. No distension or tympany. No guarding or rebound. No evidence of tenderness throughout. Skin: Warm, dry with normal turgor. Normal color with no rashes, no lesions, and no evidence of cellulitis. MS/ Extremity: Pulses equal, no cyanosis. Neurovascular intact. Full, normal range of motion. Neuro: Awake and alert, GCS 15, oriented to person, place, time, and situation. Cranial nerves II-XII grossly intact. Motor strength 5/5 in all extremities. Sensory grossly intact. Cerebellar exam normal. Normal gait. Psych: Awake, alert, with orientation to person, place and time. Behavior, mood, and affect are within normal limits. 08:52 Back: pain, that is very mild, of the low back area. Vital Signs: 08:30 BP 150 / 84; Pulse 82; Resp 18 S; Temp 97.9(O); Pulse Ox 98% on R/A; Weight 65.77 kg aa5 (R); Height 5 ft. 0 in. (152.40 cm) (R); Pain 10/10; 09:30 BP 144 / 86; Pulse 81; Resp 16; Pulse Ox 98% ; bp 10:38 BP 142 / 90; Pulse 80; Resp 16; Pulse Ox 97% ; bp 08:30 Body Mass Index 28.32 (65.77 kg, 152.40 cm) aa5 Lynch Coma Score: 09:57 Eye Response: spontaneous(4). Verbal Response: oriented(5). Motor Response: obeys bp commands(6). Total: 15. Trauma Score (Adult): 09:57 Eye Response: spontaneous(1); Verbal Response: oriented(1); Motor Response: obeys bp commands(2); Systolic BP: > 89 mm Hg(4); Respiratory Rate: 10 to 29 per min(4); Lynch Score: 15; Trauma Score: 12 MDM: 08:52 Data reviewed: vital signs, nurses notes, lab test result(s), radiologic studies. kdr Counseling: I had a detailed discussion with the patient and/or guardian regarding: the historical points, exam findings, and any diagnostic results supporting the discharge/admit diagnosis, lab results, radiology results, the need for outpatient follow up. 09:29 Patient medically screened. kdr 02/27 08:44 Order name: Basic Metabolic Panel kdr 02/27 08:44 Order name: CBC with Diff kdr 02/27 08:44 Order name: LFT's kdr 02/27 08:44 Order name: Magnesium kdr 02/27 08:44 Order name: NT PRO-BNP kdr 02/27 08:44 Order name: PT-INR kdr 02/27 08:44 Order name: Troponin (emerg Dept Use Only) kdr 02/27 08:44 Order name: XRAY Chest (1 view) kdr 02/27 08:44 Order name: EKG; Complete Time: 08:47 kdr 02/27 08:44 Order name: Cardiac monitoring; Complete Time: 09:02 kdr 02/27 08:44 Order name: EKG - Nurse/Tech; Complete Time: 09:02 kdr 02/27 08:44 Order name: IV Saline Lock; Complete Time: 09:55 kdr 02/27 08:44 Order name: Labs collected and sent; Complete Time: 09:55 kdr 02/27 08:52 Order name: CT Head C Spine kdr 02/27 08:44 Order name: O2 Per Protocol; Complete Time: 09:02 kdr 02/27 08:44 Order name: O2 Sat Monitoring; Complete Time: 09:02 kdr 02/27 10:00 Order name: Labs - recollect needed: cbc and coag tube need recollected; Complete Time: eb 10:18 Administered Medications: No medications were administered Disposition: 02/27/19 09:29 Transfer ordered to [facility]. Diagnosis is Left frontal subdural s/p fall from standing. - Reason for transfer: Higher level of care. - Accepting physician is [facility]. - Condition is Fair. - Problem is new. - Symptoms are unchanged. Signatures: Dispatcher [employer] EDMS Tim Miller MD MD kdr Jania Bruno, RN RN aa5 Eddie Chase RN RN bp Brenna Parsons Corrections: (The following items were deleted from the chart) 10:41 09:29 02/27/2019 09:29 Transfer ordered to [facility]. bp Diagnosis is Left frontal subdural s/p fall from standing. Reason for transfer: Higher level of care. Accepting physician is [facility]. Condition is Fair. Problem is new. Symptoms are unchanged. kdr
--- NOTE | 2019-02-27 09:30 | ER ---
Nurse's Notes [facility] Name: Alyson Phillips Age: 63 yrs Sex: Female : 1955 Arrival Date: 02/27/2019 Time: 08:24 Bed 6 Private MD: Darren Vallejo E Diagnosis: Left frontal subdural s/p fall from standing Presentation: 02/27 08:24 Presenting complaint: Patient states: "I've been falling a lot specially during the aa5 night". Pt states "I don't know why I fall, I just stumble and fall". Pt denies dizziness, reports normal appetite and oral intake. Pt's close friend states "I am concerned because she takes a lot of pain medicine and I think that is her problem". Pt states "my eyes hurt, my head hurts, my ears hurt". Transition of care: patient was not received from another setting of care. Onset of symptoms was 2018. Initial Sepsis Screen: Does the patient meet any 2 criteria? No. Patient's initial sepsis screen is negative. Does the patient have a suspected source of infection? No. Patient's initial sepsis screen is negative. Care prior to arrival: None. 08:24 Acuity: GREGORIO 3 aa5 08:24 Method Of Arrival: Wheelchair aa5 08:24 Risk Assessment: Do you want to hurt yourself or someone else? Patient reports no aa5 desire to harm self or others. 08:30 Mechanism of Injury: Fall from standing position. bp 08:30 Trauma event details: Injury occurred in the [facility], Injury occurred: at home. Injury occurred: February 26, 2019 Injury occurred at: 21:00. Trauma Activation: Not Applicable Physician: ED Physician; Name: ; Notified At: ; Arrived At: Physician: General Surgeon; Name: ; Notified At: ; Arrived At: Physician: Radiology; Name: ; Notified At: ; Arrived At: Physician: Respiratory; Name: ; Notified At: ; Arrived At: Physician: Lab; Name: ; Notified At: ; Arrived At: Historical: - Allergies: 08:25 NKDA; aa5 09:56 poison oak; bp - Home Meds: 09:56 albuterol inhaler [Active]; bp - PSHx: 08:25 Hysterectomy; throat polyps; aa5 - Immunization history:: Pneumococcal vaccine is up to date, Flu vaccine is not up to date. - Social history:: Smoking status: Patient/guardian denies using tobacco. - Immunization history: Last tetanus immunization: unknown. - Ebola Screening: : No symptoms or risks identified at this time. Screenin:54 Abuse screen: Denies threats or abuse. Denies injuries from another. Tuberculosis bp screening: No symptoms or risk factors identified. 10:40 Nutritional screening: No deficits noted. Fall Risk Fall in past 12 months (25 points). bp No secondary diagnosis (0 pts). Primary Survey: 08:30 NO uncontrolled hemorrhage observed. A: The patient is alert. Airway: patent, No bp supplemental oxygen in use on arrival. Breathing/Chest: Respiratory pattern: regular, Respiratory effort: spontaneous, unlabored. Circulation: Skin temperature: warm, dry. Disability Alert. Exposure/Environment: All clothing and personal items were removed. Forensic evidence collection is not deemed to be indicated at this time. Items placed in patient belonging bag. 10:38 Reassessment Airway Airway Patent Breathing/Chest Respiratory pattern Regular bp Respiratory effort Spontaneous Unlabored. Secondary Survey: 09:56 HEENT: No deficits noted. Gastrointestinal: No deficits noted. bp Assessment: 08:30 General: Appears in no apparent distress. comfortable, Behavior is cooperative, bp appropriate for age, drowsy. Pain: Complains of pain in head. 10:04 Reassessment: REPORT TO [facility]A [facility] FOR [facility] ER. TRANSPORT PENDING. bp 10:37 Reassessment: EMS AT B/S FOR TRANSPORT. bp Vital Signs: 08:30 BP 150 / 84; Pulse 82; Resp 18 S; Temp 97.9(O); Pulse Ox 98% on R/A; Weight 65.77 kg aa5 (R); Height 5 ft. 0 in. (152.40 cm) (R); Pain 10/10; 09:30 BP 144 / 86; Pulse 81; Resp 16; Pulse Ox 98% ; bp 10:38 BP 142 / 90; Pulse 80; Resp 16; Pulse Ox 97% ; bp 08:30 Body Mass Index 28.32 (65.77 kg, 152.40 cm) aa5 Selma Coma Score: 09:57 Eye Response: spontaneous(4). Verbal Response: oriented(5). Motor Response: obeys bp commands(6). Total: 15. Trauma Score (Adult): 09:57 Eye Response: spontaneous(1); Verbal Response: oriented(1); Motor Response: obeys bp commands(2); Systolic BP: > 89 mm Hg(4); Respiratory Rate: 10 to 29 per min(4); Dioni Score: 15; Trauma Score: 12 ED Course: 08:24 Patient arrived in ED. ag5 08:24 Darren Vallejo MD is Private Physician. ag5 08:24 Arm band placed on. aa5 08:25 Tim Miller MD is Attending Physician. kdr 08:33 Eddie Chase, KAYLEE is Primary Nurse. bp 08:36 Triage completed. aa5 09:08 CT Head C Spine In Process Unspecified. EDMS 09:13 initiated a transfer with Bhavna from the [facility] transfer [place]. eb 09:18 administrative approval given by Bhavna Church RN/ Dr. Rosen has accepted the patient eb without conference to [facility] ER/ report to be called to [phone]. 09:20 EKG done, by ultrasound technologist sonographer. reviewed by Tim Miller MD. at1 09:30 Patient maintains SpO2 saturation greater than 95% on room air. Thermoregulation: warm bp blanket given to patient. 09:45 Inserted saline lock: 22 gauge in right forearm, using aseptic technique. Blood bp collected. 09:54 Patient has correct armband on for positive identification. Bed in low position. Call bp light in reach. Side rails up X2. 10:06 XRAY Chest (1 view) In Process Unspecified. EDMS 10:38 No provider procedures requiring assistance completed. Patient transferred, IV remains bp in place. Administered Medications: No medications were administered Intake: 09:57 PO: 0ml; Total: 0ml. bp Output: 09:57 Urine: 0ml; Total: 0ml. bp Outcome: 09:29 ER care complete, transfer ordered by . kdr 10:38 Transferred by ground EMS to [facility]. bp 10:38 Condition: stable 10:38 Instructed on the need for transfer. 10:40 Patient's length of stay was not longer than 2 hours. bp 10:41 Patient left the ED. bp Signatures: Dispatcher [employer] EDMS Tim Miller MD MD kdr Calderon, Audri, RN RN aa5 Lucinda Paredes, external relations director EKG Tat1 Eddie Chase RN RN Brenna Meyer Ajare ag5 Corrections: (The following items were deleted from the chart) 08:34 Transition of care: patient was not received from another setting of care. [place] [id number] 08:34 Onset of symptoms was 2019 [place] [id number] 08:34 Risk Assessment: Do you want to hurt yourself or someone else? Patient reports no [facility] desire to harm self or others. [facility] 08:34 Initial Sepsis Screen: Does the patient meet any 2 criteria? No. Patient's 5 initial sepsis screen is negative. Does the patient have a suspected source of infection? No. Patient's initial sepsis screen is negative. [facility] 08:34 Care prior to arrival: None. [place] [id number] 08:34 Presenting complaint: Patient states: "I've been falling a lot specially during aa5 the night". Pt states "I don't know why I fall, I just stumble and fall". Pt denies dizziness, reports normal appetite and oral intake. Pt's close friend states "I am concerned because she takes a lot of pain medicine and I think that is her problem" [facility] 08:34 Method Of Arrival: Wheelchair [place] [id number] 08:34 Acuity: GREGORIO 3 [facility] 08:39 05:24 Risk Assessment: Do you want to hurt yourself or someone else? Patient reports no [facility] desire to harm self or others. [facility] 40 08:24 Presenting complaint: Patient states: "I've been falling a lot specially during aa5 the night". Pt states "I don't know why I fall, I just stumble and fall". Pt denies dizziness, reports normal appetite and oral intake. Pt's close friend states "I am concerned because she takes a lot of pain medicine and I think that is her problem" [facility]
--- NOTE | 2019-02-27 10:06 | RAD REPORT ---
EXAM DESCRIPTION: RAD - Chest Single View - 02/27/2019 10:00 am CLINICAL HISTORY: weakness Chest pain. COMPARISON: Chest Single View dated 10/02/2018; CHEST PA AND LAT 2 VIEW dated 05/31/2009 FINDINGS: Portable technique limits examination quality. The lungs are grossly clear. The heart is normal in size. No displaced fractures. IMPRESSION: No acute intrathoracic process suspected.
[2019-02-27 10:16] LABS: ALT/SGPT 58 U/L (12-78); AST/SGOT 27 U/L (15-37); Albumin 3.7 g/dL (3.4-5.0); Alkaline Phosphatase 57 U/L (45-117); BUN Blood Urea Nitrogen 8 mg/dL (7-18); Bicarbonate 28 mmol/L (21-32); Bilirubin Direct 0.1 mg/dL (0-0.2); Bilirubin Total 0.4 mg/dL (0.2-1.0); Glucose Level 95 mg/dL (74-106); Magnesium 2.3 mg/dL (1.8-2.4); NT PRO-BNP 264 pg/mL (<125); Potassium 3.9 mmol/L (3.5-5.1); Protein, Total 7.3 g/dL (6.4-8.2); Sodium Level 137 mmol/L (136-145); Troponin (Emerg Dept Use Only) < 0.02 ng/mL (0.0-0.045)
[2019-02-27 10:38] LABS: Absolute Lymphocytes (CBC) 1.8 K/uL (0.7-4.9); Basophils % 1.2 % (0-1.3); Hematocrit 40.7 % (36.0-45.0); Lymphocytes % 19.9 % (15.3-44.8); MPV 8.8 fL (7.6-11.3); RBC Red Blood Cell Count 4.23 M/uL (3.86-4.86)
[2019-02-27 10:41] LABS: Protime INR 1.09
[2019-02-27 14:00] VITALS: TEMP 97.9
[2019-02-27 14:03] VITALS: BP 142/90; O2SAT 97
--- NOTE | 2019-02-27 17:24 | EKG ---
Test Date: 2019-02-27 Test Time: 09:17:03 Quality Assurance Coach: JUAN MEASUREMENT RESULTS: Intervals: Rate: 79 NE: 154 QRSD: 74 QT: 388 QTc: 444 [place]: P: 77 NE: 154 QRS: 57 T: 75 INTERPRETIVE STATEMENTS: Normal sinus rhythm Normal ECG Compared to ECG 10/02/2018 06:56:25 Sinus tachycardia no longer present Myocardial infarct finding no longer present Electronically Signed On 02-27-19 17:21:43 EXTRACTOR MACHINE OPERATOR by Amor Ogden
--- OUTSIDE RECORDS SUMMARY | 2019-03-03 02:43 | XMS REPORT ---
:1955 [facility] [place] [address] [place] [id number] Care Team Providers Name Role Phone Unavailable Unavailable Unavailable Problems This patient has no known problems. Allergies, Adverse Reactions, Alerts This patient has no known allergies or adverse reactions. Medications This patient has no known medications. Encounters Start End Encounter Admission Attending Care Care Encounter Date/Time Date/Time Type Type Clinicians Facility Department ID 2019-02-27 Inpatient E [facility] [id number] 14:43:00
== END 2019-02-27 10:41 | disposition short-term general hospital (02) ==
LOC: ER 08:21
DX: S06.5X9A Traumatic subdural hemorrhage with loss of consciousness of unspecified duration, initial encounter (principal); W01.0XXA Fall on same level from slipping, tripping and stumbling without subsequent striking against object, initial encounter; Y93.89 Activity, other specified; Y92.9 Unspecified place or not applicable
CPT/HCPCS: 36415; 70450; 71045; 72125; 80048; 80076; 83735; 83880; 84484; 85025; 85610; 93005; 99285